=== PATIENT | female | born 1965 ===

== ENCOUNTER 2016-09-20 14:32 | Emergency (ER) | payer SELFPAY ==
[2016-09-20 14:50] VITALS: BP 126/74; PULSE 86; RESP 18; TEMP 97.9; O2SAT 96
--- NOTE | 2016-09-20 15:16 | EDPHY ---
H & P Stated Complaint: Right 2nd Finger Swelling/Bruising - Personal History LMP (Females 10-55): Post Menopausal Current Tetanus Diphtheria and Acellular Pertussis (TDAP): Yes Tetanus Vaccine Date: 2015 - Medical/Surgical History Hx Asthma: No Hx Chronic Respiratory Disease: No Hx Diabetes: No Hx Cardiac Disease: No Hx Renal Disease: No Hx Cirrhosis: No Hx Alcoholism: No Hx HIV/AIDS: No Hx Splenectomy or Spleen Trauma: No Other PMH: Breast Cancer 2010, Anxiety/Depression, ADD - Social History Smoking Status: Never smoked Time Seen by Provider: 09/20/16 15:02 HPI/ROS: Chief complaint: Right finger pain History of present illness: 51-year-old female presents to the emergency department for right finger pain. Patient reports the onset of symptoms approximately 30 minutes ago. She has noticed bruising right at the tip of the finger where the pain is at. She denies precipitating factors. Denies alleviating factors. She denies other associated signs or symptoms including no fevers, no numbness, no abnormal coolness in the finger, no abnormal warmth, no history of trauma. (Dimas Darnell) - Physical Exam Exam: General: Alert, nontoxic Skin: Very small hematoma to the tip of the right pointer finger. No other lesions noted on the right pointer finger. Musculoskeletal: Patient is flexing and extending her right pointer finger with good strength in the DIP, PIP and MCP joint. Vascular: Capillary refill brisk in the right pointer finger. Radial pulse 2 + . Neurologic: Sensation intact using light touch and two-point discrimination in the right pointer finger. (Dimas Darnell) Constitutional: Initial Vital Signs Temperature (C) 36.6 C 09/20/16 14:45 Heart Rate 86 09/20/16 14:45 Respiratory Rate 18 09/20/16 14:45 Blood Pressure 126/74 H 09/20/16 14:45 O2 Sat (%) 96 09/20/16 14:45 O2 Delivery Mode Room Air Allergies/Adverse Reactions: codeine Allergy (Verified 09/20/16 14:44) Home Medications: Medication Instructions Recorded Zoloft 50mg (*) 09/20/16 Medical Decision Making ED Course/Re-evaluation: Patient seen under the supervision of my secondary supervising physician Dr. Arie Mittal. Patient presents to the emergency department for finger pain. The finger is neurovascularly intact. She has good musculoskeletal control. A small hematoma is noted. No trauma is noted to precipitate this. I do not appreciate evidence of infection. I have offered an x-ray but she has declined. She is asked to follow up with her primary care doctor or hand doctor for recheck. Home care is discussed. Return precautions are given. Patient voiced understanding and agreement with plan. (Dimas Darnell) I did not see this patient while she was in the emergency department. However her care was discussed with the PA while the patient was in the department. I agree with treatment plan and management (Arie Mittal) Differential Diagnosis: Included but not limited to contusion, hematoma, fracture dislocation, felon ( Dimas Darnell) Departure - Departure Disposition: Home, Routine, Self-Care Clinical Impression: Hematoma Condition: Good Instructions: Contusion in Adults (ED) Additional Instructions: Follow-up with a hand doctor for recheck You can use ibuprofen 600 mg 3 times a day for the next 2-3 days for symptom control If symptoms worsen or new symptoms develop return to the emergency room for recheck Referrals: NONE *PRIMARY CARE P,. [Primary Care Provider] - As per Instructions Brandon Zarate MD [Medical Doctor] - As per Instructions
== END 2016-09-20 15:18 | disposition home or self-care (01) ==
DX: M79.81 Nontraumatic hematoma of soft tissue (principal); Z85.3 Personal history of malignant neoplasm of breast